=== PATIENT | male | born 1995 | race African-American/Black ===

== ENCOUNTER 2016-07-23 13:44 | Emergency (ER) | payer OTHER ==
[2016-07-23 14:08] LABS: Hematocrit 51.9 % (42.0-52.0); Hemoglobin 16.1 gm/dL (13.5-18.0); Mean Cell Volume 115.1 fl (78-100); Mean Corpuscular Hemoglobin 35.7 pg (27-31); Mean Platelet Volume 10.6 fl (6.0-9.5); Platelet Count 276 K/mm3 (150-450); Red Blood Count 4.51 M/mm3 (4.7-6.0); Red Cell Distribution Width 11.5 % (11.5-14.0); White Blood Count 24.6 K/mm3 (4.0-10.5)
[2016-07-23 14:09] LABS: Total Cells Counted 100
[2016-07-23 14:15] LABS: Atypical (Reactive) Lymph 2 % (0-2); Band 6 % (0-2.0); Eosinophil 2 % (0-3); Lymphocyte 17 % (20-51); Monocyte 7 % (0-9); Neutrophil 66 % (42-75); Neutrophil # 16.2 K/mm3 (1.3-6.0); Platelet Estimate Normal (NORMAL); RBC Morphology Normal (NORMAL)
[2016-07-23 14:20] LABS: Albumin * 3.4 gm/dl (3.4-5.0); Anion Gap 28.2 mmol/L (6.8-13.8); BUN/Creatinine Ratio 8.3 (9.0-21.6); Bilirubin, Total 1.2 mg/dL (0.0-1.1); Ca. Corrected For Albumin 8.8 mg/dL (8.4-10.2); Calcium * 8.6 mg/dL (7.9-10.9); Potassium 3.2 mmol/L (3.4-4.6); Total Protein 7.4 gm/dL (6.2-8.2)
[2016-07-23 14:34] LABS: Urine Appearance Clear; Urine Bacteria None Seen; Urine Bilirubin Negative (NEGATIVE); Urine Blood 250 /ul (NEGATIVE); Urine Color Yellow; Urine Ketone Negative (NEGATIVE); Urine Nitrite Negative (NEGATIVE); Urine Protein 100 mg/dL (NEGATIVE); Urine RBC TRACE /hpf (0-5); Urine Specific Gravity >=1.030 SP.GR. (1.005-1.030); Urine Urobilinogen Normal (NORMAL); Urine WBC None Seen /hpf (0-5)
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
[2016-07-23 14:45] LABS: Cocaine Ur Negative (NEGATIVE); Urine Barbiturate Negative (NEGATIVE); Urine Benzodiazepines Negative (NEGATIVE); Urine Opiates Negative (NEGATIVE); Urine PCP Negative (NEGATIVE); Urine THC Positive (NEGATIVE)
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
[2016-07-23 15:29] VITALS: BP 109/83
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
== END 2016-07-23 15:10 | disposition short-term general hospital (02) ==
LOC: EDBD → ER 13:44
PROC: 0T9B70Z Drainage of Bladder with Drainage Device, Via Natural or Artificial Opening (ICD-10-PCS; principal; 2016-07-23)
PROC: 0BH17EZ Insertion of Endotracheal Airway into Trachea, Via Natural or Artificial Opening (ICD-10-PCS; 2016-07-23)
DX: R56.9 Unspecified convulsions (principal); S01.90XA Unspecified open wound of unspecified part of head, initial encounter

== ENCOUNTER 2017-01-22 22:45 | Emergency (ER) | payer OTHER ==
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
[2017-01-22 23:36] LABS: Hematocrit 42.6 % (42.0-52.0); Hemoglobin 14.8 gm/dL (13.5-18.0); Mean Cell Volume 102.9 fl (78-100); Mean Corpuscular Hemoglobin 35.7 pg (27-31); Mean Corpuscular Hgb Conc 34.7 g/dl (32-36); Mean Platelet Volume 9.8 fl (6.0-9.5); Neutrophil # 6.4 K/mm3 (1.3-6.0); Neutrophil % 76.1 % (42-75.0); Platelet Count 271 K/mm3 (150-450); Red Blood Count 4.14 M/mm3 (4.7-6.0); Red Cell Distribution Width 11.3 % (11.5-14.0); White Blood Count 8.4 K/mm3 (4.0-10.5)
[2017-01-22 23:50] LABS: Albumin * 4.4 gm/dl (3.4-5.0); BUN/Creatinine Ratio 11.3 (9.0-21.6); Bilirubin, Total 1.1 mg/dL (0.0-1.1); Ca. Corrected For Albumin 8.1 mg/dL (8.4-10.2); Calcium * 8.7 mg/dL (7.9-10.9); Carbon Dioxide 28.8 mmol/L (24-32.6); Potassium 3.8 mmol/L (3.4-4.6); Total Protein 7.2 gm/dL (6.2-8.2)
[2017-01-23] MEDS ORDERED: NORMAL SALINE 1,000 ML IV ONE (00:14)
[2017-01-23] MEDS ORDERED: diphenhydrAMINE HCL 50 MG/ML VIAL IV ONE (00:14)
[2017-01-23] MEDS ORDERED: SUMAtriptan SUCCINATE 6 MG/0.5 ML VIAL SC ONE ×2 (00:20→00:25)
[2017-01-23] MEDS ORDERED: diphenhydrAMINE HCL 50 MG/ML VIAL ONE (00:24)
[2017-01-23] MEDS ORDERED: KETOROLAC TROMETHAMINE 30 MG/ML VIAL IV ONE (01:12)
[2017-01-23] MEDS ORDERED: KETOROLAC TROMETHAMINE 30 MG/ML VIAL ONE (01:16)
[2017-01-23 01:52] VITALS: BP 128/67
== END 2017-01-23 01:47 | disposition home or self-care (01) ==
LOC: ER 22:45
DX: G44.309 Post-traumatic headache, unspecified, not intractable (principal)